=== PATIENT | female | born 1995 | race Caucasian/White ===

== ENCOUNTER 2017-08-20 09:08 | Emergency (ER) | payer OTHER ==
[~2017-08-20] VITALS: Ht 165.1 cm; Wt 59.0 kg
[~2017-08-20 09:08] MED LIST: ACETAMINOPHEN-1 EAC1 PO; BACTRIM DS TAB1 EAC1 PO; BACTRIM DS TAB1 EACH PO; BENTYL 20 MG TA20 M1 PO; CIPRO500 MG PO; CITRATE OF MAG296 ML PO; CITRATE OF MAG300 ML PO; HYDROCODONE-AP1 EAC6 PO; IBUPROFEN 400400 M2 PO; IBUPROFEN 800800 M1 PO; IBUPROFEN 800800 MG PO; IRON325 PO; LOPRESSOR25 PO; NORCO 5-325 TA1 EACH PO; NORFLEX100 MG PO; ONDANSETRON HCL4 M2 PO; PHENAZOPYRIDIN200 M2 PO; PROTONIX 20 MG20 M1 PO; SPRINTEC1 EACH PO; TRAMADOL 50 MG50 MG PO; ULTRAM 50MG TAB50 MG PO; VENTOLIN HFA 1818 GM INH; ZOFRAN ODT4 MG PO; [UNRECOGNIZED DRUG - OTHER] PO
[2017-08-20 09:33] LABS: URINE BILIRUBIN NEGATIVE (Negative); URINE BLOOD NEGATIVE (Negative); URINE CLARITY CLEAR; URINE COLOR YELLOW; URINE GLUCOSE-RANDOM NEGATIVE (Negative); URINE KETONES NEGATIVE (Negative); URINE LEUKOCYTES-REFLEX NEGATIVE (Negative); URINE NITRITE-REFLEX NEGATIVE (Negative); URINE PROTEIN NEGATIVE (Negative); URINE UROBILINOGEN 0.2 E.U./dl (0.2-1.0)
[2017-08-20 09:42] LABS: HEMATOCRIT 40.7 % (37.0-47.0); HEMOGLOBIN 13.8 gm/dL (12.0-15.0); MCH 30.6 pg (26.0-34.0); MCHC 33.9 g/dL (28.0-37.0); MCV 90.4 fL (80.0-100.0); MPV 8.6 fl. (7.2-11.1); NUCLEATED RBCS 0 /100WBC; PLATELET COUNT* 244 thou/uL (150-400); RBC 4.49 mil/uL (4.20-5.00); WBC 8.6 thou/uL (4.0-11.0)
[2017-08-20 09:50] LABS: CALCIUM 9.2 mg/dL (8.5-10.1); CREATININE 0.8 mg/dL (0.6-1.3); POTASSIUM 3.9 mmol/L (3.5-5.1)
[2017-08-20 09:54] LABS: ALBUMIN 4.4 g/dL (3.4-5.0); TOTAL BILIRUBIN 0.4 mg/dL (<0.1-1.0); TOTAL PROTEIN 7.8 g/dL (6.4-8.2)
[2017-08-20 10:08] LABS: ABSOLUTE EOSINOPHILS 0.9 thou/uL (0.0-0.7); ABSOLUTE LYMPHOCYTES 1.8 thou/uL (0.8-5.3); ABSOLUTE MONOCYTES 1.1 thou/uL (0.0-1.2); ABSOLUTE NEUTROPHILS 4.7 thou/uL (1.6-8.1)
[2017-08-20 10:09] LABS: PLATELET ESTIMATE ADEQUATE
[2017-08-20 10:40] VITALS: BP 104/61
== END 2017-08-20 10:42 | disposition home or self-care (01) ==
LOC: M.ERS 09:08
PROVIDERS: Family Medicine
DX: R10.9 Unspecified abdominal pain (principal); R19.7 Diarrhea, unspecified; R11.2 Nausea with vomiting, unspecified; Z98.890 Other specified postprocedural states; Z88.4 Allergy status to anesthetic agent; Z88.6 Allergy status to analgesic agent

== ENCOUNTER → 2018-06-26 | Outpatient (CLI) | payer OTHER ==
[~2018-06-26] MED LIST changes: +TORADOL 10 MG T10 MG PO; +VALIUM5 MG PO; +ZANAFLEX2 MG PO
== END ==
LOC: M.RAD 09:48
DX: M25.511 Pain in right shoulder (principal); R07.89 Other chest pain; M54.2 Cervicalgia

== ENCOUNTER 2018-07-01 09:08 | Emergency (ER) | payer OTHER ==
[~2018-07-01] VITALS: Ht 165.1 cm; Wt 49.9 kg
[~2018-07-01 09:08] MED LIST changes: -TORADOL 10 MG T10 MG PO; -VALIUM5 MG PO; -ZANAFLEX2 MG PO
[2018-07-01] MEDS ORDERED: ZANAFLEX2 MG PO (09:21)
[2018-07-01] MEDS ORDERED: TORADOL 10 MG T10 MG PO (10:49)
[2018-07-01] MEDS ORDERED: VALIUM5 MG PO (10:49)
[2018-07-01] MEDS ORDERED: ACETAMINOPHEN-1 EAC1 PO (10:49)
[2018-07-01 11:07] VITALS: BP 108/70
== END 2018-07-01 11:08 | disposition home or self-care (01) ==
LOC: M.ERS 09:08
DX: M62.830 Muscle spasm of back (principal); Z88.8 Allergy status to other drugs, medicaments and biological substances

== ENCOUNTER 2018-12-01 00:29 | Emergency (ER) | payer OTHER ==
[~2018-12-01] VITALS: Ht 165.1 cm; Wt 52.2 kg
[~2018-12-01 00:29] MED LIST changes: +TORADOL 10 MG T10 MG PO; +VALIUM5 MG PO; +ZANAFLEX2 MG PO
[2018-12-01 02:11] VITALS: BP 120/60
== END 2018-12-01 02:11 | disposition home or self-care (01) ==
LOC: M.ERS 00:29
DX: G43.909 Migraine, unspecified, not intractable, without status migrainosus (principal); Z88.8 Allergy status to other drugs, medicaments and biological substances; Z88.6 Allergy status to analgesic agent

== ENCOUNTER 2019-05-22 10:28 | Emergency (ER) | payer OTHER ==
[~2019-05-22] VITALS: Ht 165.1 cm; Wt 56.7 kg
[2019-05-22 12:03] LABS: ABSOLUTE BASOPHILS 0.1 thou/uL (0.0-0.2); ABSOLUTE EOSINOPHILS 0.4 thou/uL (0.0-0.7); ABSOLUTE LYMPHOCYTES 1.1 thou/uL (0.8-5.3); ABSOLUTE MONOCYTES 0.8 thou/uL (0.0-1.2); ABSOLUTE NEUTROPHILS 10.1 thou/uL (1.6-8.1); BASOPHILS 0.5 %; EOSINOPHILS 3.1 %; HEMATOCRIT 38.4 % (37.0-47.0); HEMOGLOBIN 12.9 gm/dL (12.0-15.0); LYMPHOCYTES 9.2 %; MCH 31.6 pg (26.0-34.0); MCHC 33.7 g/dL (28.0-37.0); MCV 93.8 fL (80.0-100.0); MONOCYTES 6.4 %; MPV 9.3 fl. (7.2-11.1); NUCLEATED RBCS 0 /100WBC; PLATELET COUNT* 221 thou/uL (150-400); POLYS 80.8 %; RDW-CV 12.7 % (10.5-14.5); WBC 12.5 thou/uL (4.0-11.0)
[2019-05-22 12:10] LABS: CALCIUM 8.8 mg/dL (8.5-10.1); CREATININE 0.8 mg/dL (0.6-1.3); POTASSIUM 3.9 mmol/L (3.5-5.1)
[2019-05-22 12:11] LABS: APTT 25.4 Seconds (25.0-31.3); PROTIME 10.7 Seconds (9.20-11.50)
[2019-05-22 12:14] LABS: TOTAL BILIRUBIN 0.4 mg/dL (<0.1-1.0)
[2019-05-22 12:29] LABS: URINE BILIRUBIN NEGATIVE (Negative); URINE BLOOD 3+ (Negative); URINE CLARITY CLEAR; URINE COLOR YELLOW; URINE GLUCOSE-RANDOM NEGATIVE (Negative); URINE KETONES NEGATIVE (Negative); URINE LEUKOCYTES-REFLEX NEGATIVE (Negative); URINE NITRITE-REFLEX NEGATIVE (Negative); URINE PROTEIN 1+ (Negative); URINE UROBILINOGEN 0.2 E.U./dl (0.2-1.0)
[2019-05-22 12:38] LABS: SQUAMOUS >10 Many /LPF (0-3)
[2019-05-22 12:39] LABS: URINE WBC-REFLEX None Seen /HPF (0-5)
[2019-05-22 12:40] LABS: BACTERIA-REFLEX 1-9 Few /HPF (None Seen); CASTS None Seen /LPF (None Seen); CRYSTALS None Seen /LPF (None Seen); MUCUS >6 Heavy strn/LPF (None Seen)
[2019-05-22 14:58] LABS: AMP/METHAMP Negative (Negative); BARBITURATES Negative (Negative); BENZODIAZEPINES Negative (Negative); COCAINE Negative (Negative); METHADONE Negative (Negative); OPIATES Negative (Negative); PCP Negative (Negative); THC POSITIVE (Negative)
[2019-05-22] MEDS ORDERED: NORCO 5-325 TA1 EAC1 PO (15:44)
[2019-05-22 15:55] VITALS: BP 100/59
--- NOTE | 2019-05-22 16:23 | EKG ---
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
== END 2019-05-22 15:55 | disposition home or self-care (01) ==
LOC: M.ERS 10:28
PROVIDERS: Physician Assistant
DX: N93.9 Abnormal uterine and vaginal bleeding, unspecified (principal); R10.2 Pelvic and perineal pain; N80.9 Endometriosis, unspecified; Z98.890 Other specified postprocedural states; Z88.6 Allergy status to analgesic agent; Z88.8 Allergy status to other drugs, medicaments and biological substances

== ENCOUNTER 2019-09-26 12:25 | Emergency (ER) | payer OTHER ==
[~2019-09-26] VITALS: Ht 165.1 cm; Wt 54.4 kg
[~2019-09-26 12:25] MED LIST changes: +NORCO 5-325 TA1 EAC1 PO
[2019-09-26] MEDS ORDERED: ZINC SULFATE220 MG PO (12:36)
[2019-09-26] MEDS ORDERED: VITAMIN C100 MG PO (12:36)
[2019-09-26 12:44] LABS: ABSOLUTE BASOPHILS 0.1 thou/uL (0.0-0.2); ABSOLUTE EOSINOPHILS 0.3 thou/uL (0.0-0.7); ABSOLUTE LYMPHOCYTES 1.5 thou/uL (0.8-5.3); ABSOLUTE MONOCYTES 1.3 thou/uL (0.0-1.2); ABSOLUTE NEUTROPHILS 14.1 thou/uL (1.6-8.1); BASOPHILS 0.5 %; EOSINOPHILS 1.7 %; HEMATOCRIT 37.2 % (37.0-47.0); HEMOGLOBIN 12.8 gm/dL (12.0-15.0); LYMPHOCYTES 8.7 %; MCH 31.9 pg (26.0-34.0); MCHC 34.4 g/dL (28.0-37.0); MCV 92.8 fL (80.0-100.0); MONOCYTES 7.4 %; MPV 8.3 fl. (7.2-11.1); NUCLEATED RBCS 0 /100WBC; PLATELET COUNT* 255 thou/uL (150-400); POLYS 81.7 %; RBC 4.01 mil/uL (4.20-5.00); RDW-CV 13.2 % (10.5-14.5); WBC 17.2 thou/uL (4.0-11.0)
[2019-09-26 12:56] LABS: CALCIUM 8.1 mg/dL (8.5-10.1); CREATININE 0.9 mg/dL (0.6-1.3); POTASSIUM 3.1 mmol/L (3.5-5.1)
[2019-09-26 13:07] LABS: ALBUMIN 3.6 g/dL (3.4-5.0); TOTAL BILIRUBIN 0.4 mg/dL (<0.1-1.0); TOTAL PROTEIN 7.2 g/dL (6.4-8.2)
[2019-09-26] MEDS ORDERED: IBUPROFEN 800800 MG PO (14:16)
[2019-09-26 14:24] VITALS: BP 98/60
--- NOTE | 2019-09-26 14:42 | EKG ---
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
== END 2019-09-26 14:24 | disposition home or self-care (01) ==
LOC: M.ERS 12:25
PROVIDERS: Emergency Medicine
DX: M94.0 Chondrocostal junction syndrome [Tietze] (principal); N80.9 Endometriosis, unspecified; Z88.8 Allergy status to other drugs, medicaments and biological substances

== ENCOUNTER 2019-12-08 08:45 | Emergency (ER) | payer OTHER ==
[~2019-12-08] VITALS: Ht 165.1 cm; Wt 54.4 kg
[~2019-12-08 08:45] MED LIST changes: +VITAMIN C100 MG PO; +ZINC SULFATE220 MG PO
[2019-12-08] MEDS ORDERED: KEFLEX500 M1 PO (09:19)
[2019-12-08 09:21] LABS: URINE BILIRUBIN NEGATIVE (Negative); URINE BLOOD NEGATIVE (Negative); URINE CLARITY CLEAR; URINE COLOR YELLOW; URINE GLUCOSE-RANDOM NEGATIVE (Negative); URINE KETONES NEGATIVE (Negative); URINE LEUKOCYTES-REFLEX NEGATIVE (Negative); URINE NITRITE-REFLEX NEGATIVE (Negative); URINE PROTEIN NEGATIVE (Negative); URINE SPECIFIC GRAVITY 1.025 (1.005-1.030); URINE UROBILINOGEN 0.2 E.U./dl (0.2-1.0)
[2019-12-08 09:31] LABS: ABSOLUTE BASOPHILS 0.1 thou/uL (0.0-0.2); ABSOLUTE EOSINOPHILS 0.7 thou/uL (0.0-0.7); ABSOLUTE LYMPHOCYTES 2.3 thou/uL (0.8-5.3); ABSOLUTE MONOCYTES 0.8 thou/uL (0.0-1.2); ABSOLUTE NEUTROPHILS 5.2 thou/uL (1.6-8.1); BASOPHILS 0.8 %; EOSINOPHILS 7.3 %; HEMATOCRIT 39.8 % (37.0-47.0); HEMOGLOBIN 13.7 gm/dL (12.0-15.0); LYMPHOCYTES 25.8 %; MCH 31.5 pg (26.0-34.0); MCHC 34.4 g/dL (28.0-37.0); MCV 91.4 fL (80.0-100.0); MONOCYTES 8.7 %; MPV 8.4 fl. (7.2-11.1); NUCLEATED RBCS 0 /100WBC; PLATELET COUNT* 266 thou/uL (150-400); POLYS 57.4 %; RBC 4.36 mil/uL (4.20-5.00); RDW-CV 12.8 % (10.5-14.5); WBC 9.1 thou/uL (4.0-11.0)
[2019-12-08 09:39] LABS: CALCIUM 8.7 mg/dL (8.5-10.1); CREATININE 0.8 mg/dL (0.6-1.3); POTASSIUM 4.2 mmol/L (3.5-5.1)
[2019-12-08 09:44] LABS: ALBUMIN 4.1 g/dL (3.4-5.0); TOTAL BILIRUBIN 0.2 mg/dL (<0.1-1.0); TOTAL PROTEIN 7.2 g/dL (6.4-8.2)
[2019-12-08 10:56] VITALS: BP 96/61
== END 2019-12-08 10:58 | disposition home or self-care (01) ==
LOC: M.ERS 08:45
PROVIDERS: Family Medicine
DX: R10.32 Left lower quadrant pain (principal); N80.9 Endometriosis, unspecified; Z88.6 Allergy status to analgesic agent; Z88.8 Allergy status to other drugs, medicaments and biological substances

== ENCOUNTER → 2020-01-13 | Outpatient (CLI) | payer OTHER ==
[~2020-01-13] MED LIST changes: +KEFLEX500 M1 PO
== END ==
LOC: M.MRI 14:30
DX: M51.27 Other intervertebral disc displacement, lumbosacral region (principal); R93.7 Abnormal findings on diagnostic imaging of other parts of musculoskeletal system

== ENCOUNTER → 2020-01-28 | Outpatient (CLI) | payer OTHER ==
[~2020-01-28] MED LIST changes: +MEDROLDOSEPACK PO; +VOLTAREN GEL 1100 G1 TOP
--- NOTE | 2020-02-20 15:40 | PAINCON ---
[address] [address] PAIN MANAGEMENT CONSULTATION Name: BA JAMES Room: [facility]#: [id number] Admission: 01/28/20 Attend Phys: Rajinder Richardson MD Discharge: Date of : [birth year] Report #: [id number] THIS REPORT FOR: //name// cc: Sarah Davies Linda J. DO ~ THIS REPORT FOR: //name// CC: Sarah Richardson DATE OF SERVICE: 01/28/2020 CHIEF COMPLAINT: Flank pain and low back pain. HISTORY OF PRESENT ILLNESS: She describes the pain as a stabbing pain in the left lower back. She has tried nonsteroidal anti-inflammatory medications like ibuprofen. She has also tried Tylenol. She sometimes notes that her hands go numb. She has a history of kidney stones. She rates her pain as a 5/10 today. She has used muscle relaxants. Notes her pain is worse with activity. She tries to decrease her discomfort by stretching, massage, use of heat. Pain intensity may go from 5-8 as the day progresses. She does not feels that it is kidney stones. She has been seen in the emergency room in the past because of pain. She suffers from postural orthostatic tachycardia syndrome (POTS). She also had pectus excavatum surgery with a bar placed in 2007 and removed in 2009. She suffers from endometriosis. Has a history of ulcers. ALLERGIES: AMITRIPTYLINE, NAPROXEN, AND PROPRANOLOL. PAST SURGICAL HISTORY: Pectus excavatum surgery in 2007 for a bar placement, bar removal in 2009, endometriosis, bladder surgery in 1999. PAST MEDICAL HISTORY: 1. Postural orthostatic tachycardia syndrome diagnosed in 2012. 2. Myocardial event. 3. Ulcers. 4. Stomach problems. 5. Non-ST elevated myocardial infarct on 10/01/2014. 6. Complex migraine headaches with aura. SOCIAL HISTORY: The patient is working. REVIEW OF SYSTEMS: Decreased appetite, fatigue, weakness, blurred vision, chest pain, palpitations, asthma, loss of appetite, kidney stones, muscle pain and cramps, back pain, difficulty walking, breast pain, frequent recurrent headaches, lightheadedness, dizziness, numbness and tingling sensation, paralysis, memory loss, confusion, [place] [id number] PAIN MANAGEMENT CONSULTATION Name: BA JAMES Room: [facility]#: [id number] Admission: 01/28/20 Attend Phys: Rajinder Richardson MD Discharge: Date of : [birth year] Report #: [id number] LABORATORY DATA: CT of the lumbar spine dated 12/08/2019. Impression: 1. No CT findings to explain abdominal flank pain. No evidence of ureterolithiasis or hydronephrosis. 2. Couple of 3 mm nonobstructing calculi noted within the mid to lower kidney. 3. A fluid filled loops of small bowel within the central abdomen do not demonstrate mural thickening or surrounding inflammation. Normal appendix. PAIN CLINIC ASSESSMENT AND PQRS: 1. The patient is not being treated for osteoarthritis. She is not being treated for rheumatoid arthritis. 2. Height 5 feet 3 inches, weight 126 pounds, BMI is 22. 3. Vital Signs: Blood pressure 134/68, heart rate 79, respiratory rate 16, room air saturation 99%, temperature 97.9. 4. Pain intensity 5/10. 5. Fall history: The patient has not fallen in the last 3 months. 6. Blood thinner. The patient is not on a blood thinning medication. 7. Hypertension. The patient is not being treated for hypertension. 8. Opioids. The patient is not receiving opioid medication on a regular basis. 9. Risk assessment tool, low for opioid use. 10. Functional assessment tool. 11. Recreational drug use. The patient denies. 12. Tobacco: The patient has never smoked. 13. Alcohol: The patient rarely drinks alcoholic beverages. PHYSICAL EXAMINATION: GENERAL: The patient is a well-developed, well-nourished white female. Appears her stated age. She is alert and oriented x 3. Her affect is appropriate. Speech is fluent. HEENT: Normocephalic, atraumatic. Extraocular eye muscles intact. The patient is wearing a mask. NECK: Without adenopathy or JVD. HEART: Regular rate. LUNGS: Clear to auscultation. EXTREMITIES: Upper extremity muscle strength judged to be 5/5 for the major muscle groups in the upper extremity. The patient without abdominal pain. The patient has some pain and discomfort in lower portion of the back. Palpation in the area of the posterior superior iliac spine near the gluteus wilfrid and latissimus dorsi. Both reproduce pain and discomfort. Anterior and posterior spring tests are negative. Lower extremity muscle strength judged to be 5/5 for the major muscle groups in the upper extremity. Forward bending, lumbar extension, left and right lateral rotation were not problematic. The patient did note some soreness in the back area. Palpation in the paraspinous muscles in the area of the rhomboids, upper extremity, left and right were sore. The patient complains of some pins and needle sensation in her hands bilaterally. [address] [place] [address] PAIN MANAGEMENT CONSULTATION Name: BA JAMES Room: [facility]#: [id number] Admission: 01/28/20 Attend Phys: Rajinder Richardson MD Discharge: Date of : [birth year] Report #: [id number] IMPRESSION: 1. Myofascial pain, lower lumbar area, lower flank area in conjunction with muscle pain in the area of the rhomboids in the upper back area. 2. Postural arthroscopic postural orthostatic tachycardia syndrome diagnosed in 2012. 3. Myocardial event. 4. Ulcers. 5. Stomach problems. 6. Non-ST elevated myocardial infarct on 10/01/2014. 7. Complex migraine headaches with aura. RECOMMENDATIONS: We discussed treatment options with the patient. At this juncture, it appears that a component of her pain appears to be more myofascial in nature. Palpation in the area of the rhomboids does cause some reproduction of pain and discomfort, which she is experiencing in that shoulder area and mid back. Pain in the area of the left and right posterior superior iliac spine areas near the gluteus wilfrid and the posterior iliac spine were tender. We have discussed the possibility of trigger point injections to these areas. The patient can return to the pain clinic in the future for treatment. We also discussed the benefits of rolling on tennis balls in the affected area. We also explained the need for stretching. The patient can consider going to physical therapy. We would like to thank you for letting us participate in her care. We hope she continues to improve. <ELECTRONICALLY SIGNED> By: Rajinder Richardson MD 02/20/20 1540 [id number]. Waldo Richardson MD /nt
== END ==
LOC: M.PC 03:56
PROVIDERS: ATTEND Anesthesiology Pain Medicine
DX: M54.5 Low back pain (principal); R10.9 Unspecified abdominal pain; M79.10 Myalgia, unspecified site; I21.9 Acute myocardial infarction, unspecified; L98.499 Non-pressure chronic ulcer of skin of other sites with unspecified severity; K92.9 Disease of digestive system, unspecified; G43.119 Migraine with aura, intractable, without status migrainosus; Z86.79 Personal history of other diseases of the circulatory system; Z88.8 Allergy status to other drugs, medicaments and biological substances; Z79.899 Other long term (current) drug therapy

== ENCOUNTER 2020-03-21 18:57 | Emergency (ER) | payer OTHER ==
[~2020-03-21] VITALS: Ht 165.1 cm; Wt 54.4 kg
[2020-03-21 20:06] VITALS: BP 105/56
== END 2020-03-21 20:06 | disposition home or self-care (01) ==
LOC: M.ERS 18:57
DX: S63.592A Other specified sprain of left wrist, initial encounter (principal); N80.9 Endometriosis, unspecified; Z87.442 Personal history of urinary calculi; Z88.8 Allergy status to other drugs, medicaments and biological substances; W22.8XXA Striking against or struck by other objects, initial encounter; Y93.89 Activity, other specified; Y92.89 Other specified places as the place of occurrence of the external cause; Y99.8 Other external cause status

== ENCOUNTER 2021-04-09 19:50 | Emergency (ER) | payer OTHER ==
[~2021-04-09] VITALS: Ht 165.1 cm; Wt 54.4 kg
[2021-04-09 20:36] LABS: URINE BILIRUBIN NEGATIVE (Negative); URINE BLOOD 3+ (Negative); URINE CLARITY CLOUDY; URINE COLOR YELLOW; URINE GLUCOSE-RANDOM NEGATIVE (Negative); URINE KETONES NEGATIVE (Negative); URINE LEUKOCYTES-REFLEX NEGATIVE (Negative); URINE NITRITE-REFLEX NEGATIVE (Negative); URINE PROTEIN TRACE (Negative); URINE SPECIFIC GRAVITY 1.015 (1.005-1.030); URINE UROBILINOGEN 0.2 E.U./dl (0.2-1.0)
[2021-04-09 20:43] LABS: BACTERIA-REFLEX None Seen /HPF (None Seen); CASTS None Seen /LPF (None Seen); MUCUS 4-6 Moderate strn/LPF (None Seen); SQUAMOUS 0-3 Few /LPF (0-3); URINE RBC 3-10 Few /HPF (0-2); URINE WBC-REFLEX None Seen /HPF (0-5)
[2021-04-09 20:44] LABS: AMORPHOUS URATES Moderate /LPF (None Seen)
[2021-04-09 21:00] LABS: ABSOLUTE BASOPHILS 0.1 thou/uL (0.0-0.2); ABSOLUTE EOSINOPHILS 0.6 thou/uL (0.0-0.7); ABSOLUTE LYMPHOCYTES 2.4 thou/uL (0.8-5.3); ABSOLUTE MONOCYTES 0.7 thou/uL (0.0-1.2); ABSOLUTE NEUTROPHILS 5.3 thou/uL (1.6-8.1); BASOPHILS 1.2 %; EOSINOPHILS 6.7 %; HEMATOCRIT 40.2 % (37.0-47.0); HEMOGLOBIN 13.5 gm/dL (12.0-15.0); LYMPHOCYTES 26.5 %; MCH 31.2 pg (26.0-34.0); MCHC 33.7 g/dL (28.0-37.0); MCV 92.6 fL (80.0-100.0); MONOCYTES 7.6 %; MPV 8.4 fl. (7.2-11.1); NUCLEATED RBCS 0 /100WBC; PLATELET COUNT* 255 thou/uL (150-400); RBC 4.34 mil/uL (4.20-5.00); RDW-CV 12.6 % (10.5-14.5); WBC 9.1 thou/uL (4.0-11.0)
[2021-04-09 21:04] LABS: AMP/METHAMP Negative (Negative); BARBITURATES Negative (Negative); BENZODIAZEPINES Negative (Negative); COCAINE Negative (Negative); METHADONE Negative (Negative); OPIATES Negative (Negative); PCP Negative (Negative); THC POSITIVE (Negative)
[2021-04-09 21:05] LABS: CALCIUM 8.5 mg/dL (8.5-10.1); CREATININE 0.9 mg/dL (0.6-1.3)
[2021-04-10] MEDS ORDERED: ZOFRAN ODT4 MG PO (00:14)
[2021-04-10] MEDS ORDERED: TRAMADOL 50 MG50 MG PO (00:14)
[2021-04-10 00:32] VITALS: BP 102/62
== END 2021-04-10 00:32 | disposition home or self-care (01) ==
LOC: M.ERS 19:50
PROVIDERS: Emergency Medicine; Nurse Practitioner Family
DX: N93.8 Other specified abnormal uterine and vaginal bleeding (principal); R10.31 Right lower quadrant pain; Z87.442 Personal history of urinary calculi; Z87.42 Personal history of other diseases of the female genital tract; Z98.890 Other specified postprocedural states; Z88.8 Allergy status to other drugs, medicaments and biological substances

== ENCOUNTER 2021-08-15 14:17 | Emergency (ER) | payer OTHER ==
[~2021-08-15] VITALS: Ht 165.1 cm; Wt 56.7 kg
[2021-08-15 15:40] LABS: ABSOLUTE BASOPHILS 0.1 thou/uL (0.0-0.2); ABSOLUTE EOSINOPHILS 0.2 thou/uL (0.0-0.7); ABSOLUTE LYMPHOCYTES 1.1 thou/uL (0.8-5.3); ABSOLUTE MONOCYTES 0.5 thou/uL (0.0-1.2); ABSOLUTE NEUTROPHILS 4.1 thou/uL (1.6-8.1); BASOPHILS 0.9 %; EOSINOPHILS 3.7 %; HEMATOCRIT 39.3 % (37.0-47.0); HEMOGLOBIN 13.3 gm/dL (12.0-15.0); LYMPHOCYTES 18.3 %; MCH 30.5 pg (26.0-34.0); MCV 89.9 fL (80.0-100.0); MONOCYTES 8.8 %; MPV 8.4 fl. (7.2-11.1); NUCLEATED RBCS 0 /100WBC; PLATELET COUNT* 191 thou/uL (150-400); POLYS 68.3 %; RBC 4.37 mil/uL (4.20-5.00); RDW-CV 12.5 % (10.5-14.5); WBC 6.1 thou/uL (4.0-11.0)
[2021-08-15 15:50] LABS: CALCIUM 8.6 mg/dL (8.5-10.1); CREATININE 0.9 mg/dL (0.6-1.3); POTASSIUM 3.6 mmol/L (3.5-5.1)
[2021-08-15 15:55] LABS: TOTAL BILIRUBIN 0.3 mg/dL (<0.1-1.0); TOTAL PROTEIN 7.3 g/dL (6.4-8.2)
[2021-08-15] MEDS ORDERED: NORCO5 PO ×2 (16:42→18:22)
[2021-08-15 17:41] VITALS: BP 101/70
== END 2021-08-15 17:42 | disposition home or self-care (01) ==
LOC: M.ERS 14:17
PROVIDERS: Physician Assistant
DX: R10.30 Lower abdominal pain, unspecified (principal); R11.2 Nausea with vomiting, unspecified; Z98.890 Other specified postprocedural states; Z87.442 Personal history of urinary calculi; Z79.899 Other long term (current) drug therapy; Z88.8 Allergy status to other drugs, medicaments and biological substances; Z88.2 Allergy status to sulfonamides